=== PATIENT | female | born 1990 | race Caucasian/White ===

== ENCOUNTER 2018-07-11 10:06 | Emergency (ER) | payer OTHER ==
--- NOTE | 2018-07-11 10:27 | ED ---
Female Urogenital HPI - General Chief complaint: Vaginal Bleeding Stated complaint: 6wks preg, bleeding Time Seen by Provider: 07/11/18 10:15 Source: patient, RN notes reviewed, old records reviewed Mode of arrival: ambulatory Limitations: no limitations - History of Present Illness Initial comments: Patient is a 28-year-old female who presents emergency department today with chief complaint of one hour vaginal bleeding. She states that she is 6 weeks . She is a female. She does not have an RETORT OPERATOR at this time. She found out she was last Thursday. Patient states that she's had no significant abdominal pain or cramping. Patient reports that her bleeding has been slightly heavy this past hour. Was not after intercourse. She states that she woke up this morning he noticed the bleeding. Patient has history of PCO S. Denies any fevers or chills denies any urinary symptoms. - Related Data Home Medications Medication Instructions Recorded Confirmed Omeprazole 20 mg PO DAILY 04/02/16 05/05/16 Previous Rx's Medication Instructions Recorded Amoxicillin 500 mg PO TID #21 capsule 07/11/18 Allergies Allergy/AdvReac Type Severity Reaction Status Date / Time No Known Allergies Allergy Verified 07/11/18 10:12 Review of Systems ROS Statement: Those systems with pertinent positive or pertinent negative responses have been documented in the HPI. ROS Other: All systems not noted in ROS Statement are negative. Past Medical History Past Medical History: GERD/Reflux Additional Past Medical History / Comment(s): PCOS History of Any Multi-Drug Resistant Organisms: None Reported Past Surgical History: Breast Surgery Additional Past Surgical History / Comment(s): breast implant Past Anesthesia/Blood Transfusion Reactions: No Reported Reaction Past Psychological History: No Psychological Hx Reported Smoking Status: Current every day smoker - Past Family History Mother Family Medical History: No Reported History General Exam - General Exam Comments Initial Comments: Patient is a 28-year-old female. Alert and oriented 3. Patient appears in no acute distress. Limitations: no limitations General appearance: alert, in no apparent distress Head exam: Present: atraumatic, normocephalic, normal inspection Eye exam: Present: normal appearance, PERRL, EOMI. Absent: scleral icterus, conjunctival injection, periorbital swelling ENT exam: Present: normal exam, mucous membranes moist Neck exam: Present: normal inspection. Absent: tenderness, meningismus, lymphadenopathy Respiratory exam: Present: normal lung sounds bilaterally. Absent: respiratory distress, wheezes, rales, rhonchi, stridor Cardiovascular Exam: Present: regular rate, normal rhythm, normal heart sounds. Absent: systolic murmur, diastolic murmur, rubs, gallop, clicks GI/Abdominal exam: Present: soft, normal bowel sounds. Absent: distended, tenderness, guarding, rebound, rigid External exam: Present: normal external exam Speculum exam: Present: vaginal bleeding. Absent: normal speculum exam By manual exam: Present: normal by manual exam. Absent: cervical motion tenderness, adnexal tenderness Extremities exam: Present: normal inspection, full ROM, normal capillary refill. Absent: tenderness, pedal edema, joint swelling, calf tenderness Back exam: Present: normal inspection Neurological exam: Present: alert, oriented X3, CN II-XII intact Psychiatric exam: Present: normal affect, normal mood Skin exam: Present: warm, dry, intact, normal color Course Vital Signs 07/11/18 10:09 Temperature 98.3 F Pulse Rate 89 Respiratory 18 Rate Blood Pressure 120/86 O2 Sat by Pulse 99 Oximetry Medical Decision Making - Medical Decision Making 28-year-old female presents for his reports of a one-hour vaginal bleeding. female. No RETORT OPERATOR at this time. She found she was recently . This time Patient hCG level 74,000. She is A positive blood type. He does have some bleeding on pelvic exam. Ultrasound does show viable IUP measuring 6 weeks. Heart rate was 113 bpm. Discussed that this I will diagnose her with threatened miscarriage. Her repeat her hCG level and follow-up with RETORT OPERATOR. She also has bacteria in her urine and will treat the Patient for a symptomatically teary. Patient family Patient agree to treatment plan will comply. Return parameters were discussed. - Lab Data Lab Results 07/11/18 07/11/18 07/11/18 Range/Units 10:42 10:42 10:42 HCG, Quant mIU/mL Urine Color Light Yellow Urine Appearance Cloudy H (Clear) Urine pH 6.5 (5.0-8.0) Ur Specific [place] 1.004 (1.001-1.035) Urine Protein Trace H (Negative) Urine Glucose (UA) Negative (Negative) Urine Ketones Negative (Negative) Urine Blood Large H (Negative) Urine Nitrite Negative (Negative) Urine Bilirubin Negative (Negative) Urine Urobilinogen <2.0 (<2.0) mg/dL Ur Leukocyte Esterase Negative (Negative) Urine RBC 4 (0-5) /hpf Urine WBC 4 (0-5) /hpf Ur Squamous Epith Cells 6 H (0-4) /hpf Urine Bacteria Many H (None) /hpf Urine Mucus Rare H (None) /hpf Urine HCG, Qual Detected (Not Detectd) Blood Type A Positive Blood Type Recheck [facility] ONLY 07/11/18 Range/Units 10:42 HCG, Quant 03162.1 mIU/mL Urine Color Urine Appearance (Clear) Urine pH (5.0-8.0) Ur Specific [place] (1.001-1.035) Urine Protein (Negative) Urine Glucose (UA) (Negative) Urine Ketones (Negative) Urine Blood (Negative) Urine Nitrite (Negative) Urine Bilirubin (Negative) Urine Urobilinogen (<2.0) mg/dL Ur Leukocyte Esterase (Negative) Urine RBC (0-5) /hpf Urine WBC (0-5) /hpf Ur Squamous Epith Cells (0-4) /hpf Urine Bacteria (None) /hpf Urine Mucus (None) /hpf Urine HCG, Qual (Not Detectd) Blood Type Blood Type Recheck - Radiology Data Radiology results: report reviewed Viable intrauterine gestation with gestational age of 6 weeks and 3 days plus or -5 days. Estimated date of confinement based on this exam is 03/03/2019. Heart rate of 116 bpm. Disposition Clinical Impression: Threatened miscarriage, Asymptomatic bacteriuria during Disposition: HOME SELF-CARE Condition: Good Instructions: Threatened Miscarriage (ED) Additional Instructions: Patient advised to follow-up with primary care provider. Return to emergency department if any alarming signs occur. Prescriptions: Amoxicillin 500 mg PO TID #21 capsule Is patient prescribed a controlled substance at d/c from ED?: No Referrals: Harleen Hdz DO [Primary Care Provider] - 1-2 days Marcella Ambriz MD [STAFF PHYSICIAN] - 1-2 days Time of Disposition: 12:46
[2018-07-11 11:02] LABS: Appearance,Urine Cloudy (Clear); Bacteria,Urine Many /hpf; Bilirubin,Urine Negative (Negative); Blood,Urine Large (Negative); Color,Urine Light Yellow; Glucose,Urine (UA) Negative (Negative); Ketones,Urine Negative (Negative); Leukocyte Esterase,Urine Negative (Negative); Mucus,Urine Rare /hpf; Nitrite,Urine Negative (Negative); PH, Urine 6.5 (5.0-8.0); Protein,Urine Trace (Negative); RBC,Urine 4 /hpf (0-5); Specific Gravity,Urine 1.004 (1.001-1.035); Squamous Epithelial Cell,Urine 6 /hpf (0-4); Urobilinogen,Urine <2.0 mg/dL (<2.0); WBC,Urine 4 /hpf (0-5)
--- NOTE | 2018-07-11 11:23 | US ---
EXAMINATION TYPE: Transabdominal DATE OF EXAM: 12/08/17 COMPARISON: NONE CLINICAL HISTORY: pain. Bleeding today, no cramping, patient has h/o PCOS EXAM PERFORMED: OBTA EXAM MEASUREMENTS: GESTATIONAL AGE / DATING Physician Established: Not yet established Dates by LMP: (6 weeks/3 days) EDC: 03/03/2019 Dates by First Scan: No previous this is first scan Dates by Current Scan for: (6 weeks/3 days) EDC: 03/03/2019 MATERNAL ANATOMY Uterus: 9.5 x 6.6 x 5.8cm Right Ovary: 4.8 x 3.7 x 3.9cm Left Ovary: 3.0 x 1.9 x 2.2cm Post CDS / Adnexa: wnl Presence of free fluid: no Presence of corpus luteal cyst: 2 cystic areas seen on the right, 2.6cm and 2.8cm Presence of subchorionic bleed: no GESTATION / SURVEY CRL: 0.6 (6 weeks/3 days) MSD: wnl Yolk Sac (normal less than 6mm): 0.3cm Heart Rate: 116 bpm Rhythm: Normal IUP: Viable IUP Date of LMP: 05/27/2018 Beta HcG (if available): pending IMPRESSION: VIABLE INTRAUTERINE GESTATION WITH A GESTATIONAL AGE OF 6 WEEKS 3 DAYS +/- 5 DAYS. ESTIMATED DATE OF CONFINEMENT BASED ON THIS EXAMINATION IS 03/03/2019
[2018-07-11 13:13] VITALS: BP 122/79; PULSE 79; RESP 17; TEMP 97.8
[2018-07-13 13:23] LABS: N. gonorrhoeae,PCR Negative (Neg,Equiv); Neisseria Source Vagina
[2018-07-13 13:31] LABS: C. trachomatis,PCR Negative (Neg,Equiv); Chlamydia trachomatis Source Vagina
== END 2018-07-11 13:13 | disposition home or self-care (01) ==
LOC: EC 10:06
DX: O20.0 Threatened abortion (principal); O23.41 Unspecified infection of urinary tract in pregnancy, first trimester; O99.611 Diseases of the digestive system complicating pregnancy, first trimester; K21.9 Gastro-esophageal reflux disease without esophagitis; O99.331 Smoking (tobacco) complicating pregnancy, first trimester; F17.200 Nicotine dependence, unspecified, uncomplicated; Z3A.01 Less than 8 weeks gestation of pregnancy; Z79.899 Other long term (current) drug therapy
CPT/HCPCS: 36415; 76801; 81001; 81025; 84702; 86900; 86901; 87070; 87205; 87491; 87591; 87808; 99284

== ENCOUNTER → 2018-07-13 | Outpatient (CLI) | payer OTHER | END | disposition home or self-care (01) | LOC: LABWHC1 09:28 | PROVIDERS: ATTEND Physician Assistant Medical | DX: O20.0 Threatened abortion (principal); Z3A.00 Weeks of gestation of pregnancy not specified | CPT/HCPCS: 36415; 84702 ==

== ENCOUNTER 2019-02-24 05:55 | Inpatient (IN) | payer OTHER ==
[2019-02-24] MEDS ORDERED: CARBOPROST TROMETHAMINE 250 MCG/ML 1 ML AMP IM PRN (06:03)
[2019-02-24] MEDS ORDERED: TERBUTALINE 1 MG/ML VIAL SQ PRN (06:03)
[2019-02-24] MEDS ORDERED: LIDOCAINE 0.5% (PF) 5 MG/ML (50 ML SDV) SQ PRN (06:03)
[2019-02-24] MEDS ORDERED: METHYLERGONOVINE 0.2 MG/ML 1 ML AMP IM PRN (06:03)
[2019-02-24] MEDS ORDERED: OXYTOCIN 10 UNIT/ML 1 ML VIAL IM PRN (06:03)
[2019-02-24 06:12] VITALS: BMI 38.4
[2019-02-24] MEDS: LACTATED RINGERS 1,000 ML IV SCH ×4 (06:12→21:33)
[2019-02-24] MEDS: OXYTOCIN 30 UNITS/500 ML NS 30 UNIT in SALINE 1 500ML.BAG IV SCH (06:13)
[2019-02-24 06:22] LABS: Basophils % (A) 0 %; Eosinophils # (A) 0.1 k/uL (0-0.7); Eosinophils % (A) 1 %; HCT 39.1 % (34.0-46.0); HGB 12.5 gm/dL (11.4-16.0); Hypochromasia Slight; Lymphocytes # (A) 1.7 k/uL (1.0-4.8); Lymphocytes % (A) 17 %; MCH 27.1 pg (25.0-35.0); MCHC 31.9 g/dL (31.0-37.0); MCV 84.8 fL (80.0-100.0); Monocytes # (A) 0.4 k/uL (0-1.0); Monocytes % (A) 4 %; Neutrophils # (A) 7.5 k/uL (1.3-7.7); Neutrophils % (A) 75 %; Platelet Count 246 k/uL (150-450); RBC 4.61 m/uL (3.80-5.40); RDW 14.4 % (11.5-15.5); WBC 9.9 k/uL (3.8-10.6)
--- NOTE | 2019-02-24 08:41 | P.HPOB ---
History of Present Illness H&P Date: 02/24/19 Chief Complaint: IUP @ 39 0/7 weeks, LGA This is a 28-year-old [id number] at 39-0/7 weeks that presents for induction of labor secondary to LGA. Patient was measuring 9H greater than the 99th percentile on ultrasound. Patient is noting good movement she notes an occasional contraction, no vaginal bleeding. Patient has been receiving routine care with myself and has been relatively uncomplicated. On bloodwork should a blood type of A+, rubella nonimmune, hepatitis B surface antigen negative, HIV negative, RPR nonreactive, GBS was negative. Review of Systems Constitutional: Denies fatigue, Denies fever Ears, nose, mouth and throat: Denies headache Cardiovascular: Reports leg edema Respiratory: Denies dyspnea Gastrointestinal: Denies nausea, Denies vomiting Genitourinary: Reports Past Medical History Past Medical History: GERD/Reflux Additional Past Medical History / Comment(s): PCOS, "borderline diabetic" History of Any Multi-Drug Resistant Organisms: None Reported Past Surgical History: Breast Surgery Additional Past Surgical History / Comment(s): breast implant Past Anesthesia/Blood Transfusion Reactions: No Reported Reaction Past Psychological History: No Psychological Hx Reported Smoking Status: Former smoker Past Alcohol Use History: Occasional Additional Past Alcohol Use History / Comment(s): quit with Past Drug Use History: None Reported - Past Family History Mother Family Medical History: Hypertension, Thyroid Disorder Father Additional Family Medical History / Comment(s): type 2 diabetes Medications and Allergies Home Medications Medication Instructions Recorded Confirmed Type Ranitidine HCl [Zantac] 150 mg PO BID 02/24/19 02/24/19 History Allergies Allergy/AdvReac Type Severity Reaction Status Date / Time No Known Allergies Allergy Verified 02/24/19 06:03 Exam Osteopathic Statement: *. No significant issues noted on an osteopathic structural exam other than those noted in the History and Physical/Consult. Vital Signs Temp Pulse Resp BP Pulse Ox 02/24/19 06:06 97.3 F L 100 18 138/93 98 Intake and Output 02/23/19 02/24/19 02/24/19 22:59 06:59 14:59 Other: Weight 117.934 kg Targeted physical exam is performed and the state in general this a well- nourished well-developed female in no acute distress, her breathing is noted to be nonlabored, her heart is noted to have a regular rate and rhythm her abdomen is gravid and large for gestational age, heart tones are noted to be category 1 she is skip irregularly at this time. On cervical exam she is a tight 2/80/-2 amniotomy is performed and clear fluid was obtained. Results Result Diagrams: 02/24/19 06:07 Assessment and Plan (1) Term Current Visit: Yes Status: Acute Code(s): Z34.90 - ENCNTR FOR SUPRVSN OF NORMAL , UNSP, UNSP TRIMESTER SNOMED Code(s): 09632181 (2) Large for gestational age fetus Current Visit: Yes Status: Acute Code(s): UAQ6433 - SNOMED Code(s): 665359512 Plan: Patient is admitted to labor and delivery for induction of labor secondary to suspected large for gestational age with ultrasound revealing 9-8. Patient does desire epidural for pain management and we discussed once she is making cervical change we will contact anesthesia for placement.
[2019-02-24] MEDS ORDERED: fentaNYL (PF) 50 MCG/ML 5 ML AMP ONE (12:33)
[2019-02-24] MEDS ORDERED: SODIUM CHLORIDE 0.9% 100 ML BAG ONE (12:33)
[2019-02-24] MEDS ORDERED: ROPIVACAINE 5MG/ML 20ML VIAL ONE (12:33)
[2019-02-24] MEDS ORDERED: ceFAZolin IN SWFI 2 GM/20 ML SYRINGE IVP ONE (16:37)
[2019-02-24] MEDS ORDERED: CITRIC ACID-SODIUM CITRATE 15 ML CUP PO ONE (16:37)
[2019-02-24] MEDS ORDERED: HYDROmorphone (PF) 1 MG/ML ONE (16:54)
[2019-02-24] MEDS ORDERED: METHYLERGONOVINE 0.2 MG/ML 1 ML AMP ONE (16:54)
[2019-02-24] MEDS ORDERED: NALBUPHINE 10 MG/ML (1 ML AMP) ONE (16:54)
[2019-02-24] MEDS ORDERED: ONDANSETRON 4 MG/2 ML VIAL ONE (16:54)
[2019-02-24] MEDS ORDERED: SUCCINYLCHOLINE CHLORIDE 100 MG/5 ML SYR IV ONE (16:54)
[2019-02-24] MEDS ORDERED: PROPOFOL 10 MG/ML 20 ML VIAL IV ONE (16:54)
[2019-02-24] MEDS ORDERED: DEXAMETHASONE SOD PHOS (MDV) 100 MG/10 ML VIAL ONE (16:54)
[2019-02-24] MEDS ORDERED: OXYTOCIN 10 UNIT/ML 1 ML VIAL ONE (16:54)
[2019-02-24] MEDS ORDERED: ONDANSETRON 4 MG/2 ML VIAL IVP PRN (17:39)
[2019-02-24] MEDS ORDERED: diphenhydrAMINE 50 MG CAP PO PRN ×2 (17:39→17:56)
[2019-02-24] MEDS ORDERED: METOCLOPRAMIDE 5 MG/ML 2 ML VIAL IVP PRN ×2 (17:39→17:56)
[2019-02-24] MEDS ORDERED: NALOXONE 0.4 MG/ML 1 ML VIAL IV PRN (17:39)
[2019-02-24] MEDS ORDERED: ACETAMINOPHEN IV (For NPO) 1,000 MG in EMPTY BAG 1 BAG IVPB ONE (17:39)
[2019-02-24] MEDS ORDERED: MEASLES-MUMPS-RUBELLA VACC/PF 12,500 UNIT/0.5 ML VIAL SQ ONE (17:39)
[2019-02-24] MEDS ORDERED: ACETAMINOPHEN TAB 325 MG TAB PO PRN (17:39)
[2019-02-24] MEDS ORDERED: diphenhydrAMINE 50 MG/ML 1 ML VIAL IVP PRN ×4 (17:39→17:56)
[2019-02-24] MEDS ORDERED: diphenhydrAMINE 25 MG CAP PO PRN ×2 (17:39→17:56)
[2019-02-24] MEDS ORDERED: ZOLPIDEM 5 MG TAB PO PRN (17:39)
[2019-02-24] MEDS ORDERED: OXYTOCIN 20 UNITS/1000 ML NS 1,000 ML IV SCH (17:45)
--- NOTE | 2019-02-24 17:45 | P.OP ---
Date of Procedure: 02/24/19 Preoperative Diagnosis: IUP at 39 and 1/sevenths weeks, suspected LGA Postoperative Diagnosis: Same plus LGA, occiput transverse presentation Procedure(s) Performed: Primary low transverse section Anesthesia: FATOUA Surgeon: Karrie Suggs Boring Machine Operator Helper #1: Luis Manuel Sebastian Estimated Blood Loss (ml): 600 IV fluids (ml): 1,000 Urine output (ml): 100 Pathology: none sent Condition: stable Disposition: PACU Indications for Procedure: Arrest of dilation, with known suspected LGA Operative Findings: Arcuate uterus, normal tubes and ovaries were appreciated, male delivered at 1710, weight 10-7 Description of Procedure: The patient was prepped and draped in the usual fashion after general anesthesia was obtained, she was unable to be comfortable with 3 dosing her epidural. This epidural had been replaced previously in addition.. A Pfannenstiel incision was made and extended of the abdominal cavity without difficulty. The bladder peritoneum was elevated and incised and reflected distally. A 2 cm incision was made in the transverse plane of the lower uterine segment to enter the uterus at which time clear fluid was noted. The incision was extended in both directions using the bandage scissors. The head was encountered within the field and delivered up and through the incision where the nose and mouth were thoroughly suctioned. Remainder of the was delivered onto the surgical field where the cord was doubly clamped, cut, and the infant was passed for resuscitative measures with weight and Apgars as noted above. A segment of cord was then doubly clamped, cut, and set aside should cord gases become necessary. The placenta was delivered manually, intact, and was grossly normal with a grossly normal three-vessel cord. The uterus was exteriorized and the interior cavity of the uterus swept of any remaining placental and membranous fragments with a laparotomy sponge. The margins of the incision were grasped with Allis clamps and the incision closed in 2 layers. First layer was a running locking layer of 0 Vicryl from margin to margin followed by a second layer of imbricating 0 Vicryl from margin to margin. Any small points of bleeding were then made hemostatic with the Bovie. Once hemostasis was achieved, the posterior cul-de-sac was suctioned with a guard and the uterine and ovarian findings are as noted above. The uterus was replaced within the abdominal cavity and the gutters swept of any remaining blood fluid or clot. The incision was again reexamined and hemostasis was noted to be excellent. Any small point of bleeding were made hemostatic with the Bovie. Once hemostasis was achieved the parietal peritoneum was loosely reapproximated. The layer of muscles were examined and made hemostatic with the Bovie. Attention was then turned to the fascia which was closed with 2 running stitches of 0 Vicryl proceeding from the lateral margins to the midpoint. The subcutaneous tissues were irrigated, made hemostatic with the Bovie, and reapproximated with a running stitch of 30 plain Vicryl. The skin was reapproximated with 4-0 Vicryl. Estimated blood loss for the case was approximately 600 mL. All sponge instrument and needle counts are correct. There were no complications. The patient tolerated the procedure well and proceeded to the recovery room in stable condition. Both mother and infant are resting comfortably in recovery.
[2019-02-24] MEDS: SENNOSIDES-DOCUSATE SODIUM 1 EACH TAB PO SCH (21:31)
[2019-02-25] MEDS: FAMOTIDINE 20 MG TAB PO SCH ×2 (02:32→23:03)
[2019-02-25] MEDS: LACTATED RINGERS 1,000 ML IV SCH ×5 (02:33→23:04)
[2019-02-25 07:18] LABS: Basophils % (A) 0 %; Eosinophils % (A) 0 %; HCT 29.3 % (34.0-46.0); Hypochromasia Slight; Lymphocytes % (A) 7 %; MCV 84.8 fL (80.0-100.0); Monocytes # (A) 0.6 k/uL (0-1.0); Monocytes % (A) 4 %; Neutrophils # (A) 11.9 k/uL (1.3-7.7); Neutrophils % (A) 88 %; Platelet Count 225 k/uL (150-450); RBC 3.46 m/uL (3.80-5.40); RDW 14.5 % (11.5-15.5); WBC 13.5 k/uL (3.8-10.6)
[2019-02-25 07:48] LABS: HGB 9.7 gm/dL (11.4-16.0)
[2019-02-25] MEDS ORDERED: IBUPROFEN IV 800 MG in SODIUM CHLORIDE 0.9% 250 ML IV ONE (09:00)
[2019-02-25] MEDS: SENNOSIDES-DOCUSATE SODIUM 1 EACH TAB PO SCH ×2 (09:51→22:45)
--- NOTE | 2019-02-25 10:31 | P.PNOBGPC ---
Subjective - Subjective Principal diagnosis: POD 1 LTCS Interval history: Patient is struggling with pain control sense this morning. PROGRAM DEVELOPER was discontinued and she is now on oral [place]. She states her pain is okay this morning. We are awaiting a spontaneous void. [facility] She is tolerating crackers and clear liquids without nausea or vomiting. Her lochia is noted to be moderate. Patient reports: Reports appetite normal, Reports pain poorly controlled, Reports ambulating normally [place]: doing well Objective - Vital Signs Latest vital signs: Vital Signs Temp Pulse Resp BP Pulse Ox 02/25/19 07:37 99.8 F H 102 H 16 131/78 98 02/25/19 04:00 98.1 F 108 H 16 140/93 02/24/19 23:27 98 F 90 18 154/80 98 02/24/19 19:48 98.4 F 87 18 147/80 95 02/24/19 19:18 98.7 F 94 18 147/79 96 02/24/19 18:48 98.1 F 90 18 143/92 95 02/24/19 18:33 87 18 154/82 96 02/24/19 18:18 98.7 F 90 20 153/82 95 02/24/19 18:03 99 18 142/86 95 02/24/19 17:48 99.4 F 102 H 18 149/83 90 L Intake and Output 02/24/19 02/25/19 02/25/19 22:59 06:59 14:59 Output Total 1000 800 400 Balance -1000 -800 -400 Output: Urine 400 800 400 Uretheral (Orr) 400 Estimated Blood Loss 600 Other: Voiding Method Indwelling Catheter - Exam Extremities: Present: normal, edema Abdomen: Present: normal appearance, soft Incision: Present: normal, dry, intact Uterus: Present: normal, firm - Labs Labs: Abnormal Lab Results - Last 24 Hours (Table) 02/25/19 Range/Units 06:48 WBC 13.5 H (3.8-10.6) k/uL RBC 3.46 L (3.80-5.40) m/uL Hgb 9.7 L D (11.4-16.0) gm/dL Hct 29.3 L (34.0-46.0) % Neutrophils # 11.9 H (1.3-7.7) k/uL Assessment and Plan (1) Term Current Visit: Yes Status: Acute Code(s): Z34.90 - ENCNTR FOR SUPRVSN OF NORMAL , UNSP, UNSP TRIMESTER SNOMED Code(s): 48805471 (2) Large for gestational age fetus Current Visit: Yes Status: Acute Code(s): GWC4892 - SNOMED Code(s): 145948611 (3) S/P section Current Visit: Yes Status: Acute Code(s): Z98.891 - HISTORY OF UTERINE SCAR FROM PREVIOUS SURGERY SNOMED Code(s): 491548680 Plan: We will monitor patient's pain as we continue with care. The oral [place] seem to be working better than the PROGRAM DEVELOPER at this time. Encouraged ambulation. We will advance diet as tolerated.
[2019-02-25] MEDS: HYDROcodone/APAP 5-325MG 1 EACH TAB PO PRN ×2 (13:12→22:44)
[2019-02-25] MEDS: IBUPROFEN 600 MG TAB PO PRN (17:58)
[2019-02-25] MEDS: OXYTOCIN 30 UNITS/500 ML NS 30 UNIT in SALINE 1 500ML.BAG IV SCH (23:03)
[2019-02-26] MEDS: HYDROcodone/APAP 5-325MG 1 EACH TAB PO PRN ×4 (05:31→22:38)
[2019-02-26] MEDS: IBUPROFEN 600 MG TAB PO PRN ×3 (07:59→21:04)
[2019-02-26] MEDS: SENNOSIDES-DOCUSATE SODIUM 1 EACH TAB PO SCH ×2 (08:00→18:55)
--- NOTE | 2019-02-26 11:13 | P.PNOBGPC ---
Subjective - Subjective Patient reports: Reports appetite normal, Reports voiding normally, Reports pain well controlled, Reports ambulating normally : doing well, in NICU (For blood sugar control and elevated bilirubin under the BiliBlanket.) Objective - Vital Signs Latest vital signs: Vital Signs Temp Pulse Resp BP Pulse Ox 02/26/19 08:00 98 F 90 16 121/73 100 02/26/19 00:00 98.5 F 92 16 129/71 98 02/25/19 16:00 98.2 F 93 16 129/75 97 02/25/19 12:00 98.9 F 103 H 16 125/77 97 Intake and Output 02/25/19 02/26/19 02/26/19 22:59 06:59 14:59 Output Total 500 Balance -500 Output: Urine 500 - Exam Extremities: Present: normal Abdomen: Present: normal appearance, soft. Absent: distention, tenderness Incision: Present: normal, dry, intact Uterus: Present: normal, firm (The uterine fundus is tonic and nontender at or just below the umbilicus.) Assessment and Plan (1) S/P section Current Visit: Yes Status: Acute Code(s): Z98.891 - HISTORY OF UTERINE SCAR FROM PREVIOUS SURGERY SNOMED Code(s): 729699803 Plan: Continue routine postoperative care. The patient will likely remain in the hospital as long as insurance will allow pending discharge timing of the . I have encouraged her to ambulate in the halls routinely.
[2019-02-26] MEDS: FAMOTIDINE 20 MG TAB PO SCH ×2 (11:38→19:40)
[2019-02-27] MEDS: HYDROcodone/APAP 5-325MG 1 EACH TAB PO PRN ×3 (04:51→19:44)
[2019-02-27] MEDS: IBUPROFEN 600 MG TAB PO PRN ×3 (07:49→22:44)
--- NOTE | 2019-02-27 09:43 | P.PNOBGPC ---
Subjective - Subjective Patient reports: Reports appetite normal, Reports voiding normally, Reports pain well controlled, Reports ambulating normally : doing well, in NICU (The infant remains and special care nursery for ongoing treatment of low blood sugar as well as bilirubin concerns.) Objective - Vital Signs Latest vital signs: Vital Signs Temp Pulse Resp BP Pulse Ox 02/27/19 08:00 93 16 134/75 02/26/19 23:37 98.4 F 88 16 130/71 98 02/26/19 15:54 97.6 F 84 18 115/67 97 - Exam Extremities: Present: normal Abdomen: Present: normal appearance, soft. Absent: distention, tenderness Incision: Present: normal, dry, intact Uterus: Present: normal, firm (The uterine fundus is tonic and nontender just below the umbilicus.) Assessment and Plan (1) S/P section Current Visit: Yes Status: Acute Code(s): Z98.891 - HISTORY OF UTERINE SCAR FROM PREVIOUS SURGERY SNOMED Code(s): 477911024 Plan: Continue routine postoperative care. Discharge home is planned for tomorrow pending no medical complications. I have continued to encourage her to ambulate in the halls routinely.
[2019-02-27] MEDS: SENNOSIDES-DOCUSATE SODIUM 1 EACH TAB PO SCH ×2 (12:24→12:39)
[2019-02-27] MEDS: FAMOTIDINE 20 MG TAB PO SCH ×2 (17:56→20:14)
[2019-02-27] MEDS: SIMETHICONE 80 MG CHEWABLE PO PRN (20:05)
[2019-02-28] MEDS: HYDROcodone/APAP 5-325MG 1 EACH TAB PO PRN ×2 (03:44→12:13)
[2019-02-28] MEDS: IBUPROFEN 600 MG TAB PO PRN ×2 (07:52→16:27)
[2019-02-28] MEDS: SIMETHICONE 80 MG CHEWABLE PO PRN ×2 (07:52→16:29)
[2019-02-28] MEDS: SENNOSIDES-DOCUSATE SODIUM 1 EACH TAB PO SCH (08:04)
[2019-02-28 08:07] VITALS: PULSE 84; RESP 16
--- NOTE | 2019-02-28 08:32 | P.DS ---
Providers Date of admission: 02/24/19 05:55 Expected date of discharge: 02/28/19 Attending physician: Karrie Suggs Primary care physician: Harleen Hdz - Discharge Diagnosis(es) (1) Term Current Visit: Yes Status: Acute (2) Large for gestational age fetus Current Visit: Yes Status: Acute (3) S/P section Current Visit: Yes Status: Acute Hospital Course: This is a pleasant 28-year-old 1 para 0 at 39 0/7 weeks that presented to labor and delivery for induction of labor secondary to suspected LGA. Patient was admitted Pitocin augmentation of labor was begun. Patient underwent amniotomy once regular painful contractions were noted. Clear fluid was obtained at that time. Patient made minimal progress through labor eventually being stuck at 4 cm for multiple hours. Patient was counseled on the need for primary low transverse section secondary to arrest of first stage of labor with suspected LGA. Patient consented and wished to proceed with plan. Patient was taken back for a which was performed without difficulty. For further details on the please see the operative report. Patient's postoperative course has been essentially uneventful. On this postop day #4 she is ambulating and voiding without difficulty. She is tolerating a regular diet without nausea or vomiting. She denies concerns today and is ready for discharge. Her infant has been struggling with low blood sugars and will remain admitted for a additional few days. Patient Condition at Discharge: Good Plan - Discharge Summary New Discharge Prescriptions: No Action Ranitidine HCl [Zantac] 150 mg PO BID Discharge Medication List Ranitidine HCl [Zantac] 150 mg PO BID 02/24/19 [History] Follow up Appointment(s)/Referral(s): Karrie Suggs DO [Doctor of Osteopathic Medicine] - 2 Weeks Patient Instructions/Handouts: (DC), (GEN) Discharge Disposition: HOME SELF-CARE
[2019-02-28] MEDS: FAMOTIDINE 20 MG TAB PO SCH (10:13)
[2019-02-28 18:14] VITALS: BP 133/78; TEMP 98.3
== END 2019-02-28 18:55 | disposition home or self-care (01) | DRG 788 ==
LOC: 4FBP 05:55
PROVIDERS: ADMIT Obstetrics & Gynecology Obstetrics; ATTEND Obstetrics & Gynecology Obstetrics
PROC: 10D00Z1 Extraction of Products of Conception, Low, Open Approach (ICD-10-PCS; principal; 2019-02-24 06:15)
DX: O36.63X0 Maternal care for excessive fetal growth, third trimester, not applicable or unspecified (principal); O99.62 Diseases of the digestive system complicating childbirth; K21.9 Gastro-esophageal reflux disease without esophagitis; O62.0 Primary inadequate contractions; Q51.810 Arcuate uterus; O99.89 Other specified diseases and conditions complicating pregnancy, childbirth and the puerperium; E28.2 Polycystic ovarian syndrome; R73.03 Prediabetes; Z37.0 Single live birth; Z3A.39 39 weeks gestation of pregnancy; Z87.891 Personal history of nicotine dependence; Z98.82 Breast implant status; Z82.49 Family history of ischemic heart disease and other diseases of the circulatory system; Z83.3 Family history of diabetes mellitus; Z83.49 Family history of other endocrine, nutritional and metabolic diseases
CPT/HCPCS: 85025; 86850; 86900; 86901; 90707

== ENCOUNTER 2020-12-01 18:00 | Emergency (ER) | payer OTHER ==
[2020-12-01] MEDS ORDERED: SODIUM CHLORIDE 0.9% 1,000 ML IV STA (18:33)
[2020-12-01] MEDS ORDERED: KETOROLAC 15 MG/ML 1 ML VIAL IVP STA (18:33)
[2020-12-01] MEDS ORDERED: ACETAMINOPHEN TAB 500 MG TAB PO STA (18:33)
[2020-12-01] MEDS ORDERED: ONDANSETRON 4 MG/2 ML VIAL IVP STA (18:33)
[2020-12-01] MEDS ORDERED: diphenhydrAMINE 50 MG/ML 1 ML VIAL IVP STA (18:33)
--- NOTE | 2020-12-01 19:20 | ED ---
Headache HPI - General Chief Complaint: Headache Stated Complaint: Covid exposure, headache Time Seen by Provider: 12/01/20 18:23 Mode of arrival: ambulatory Limitations: no limitations - History of Present Illness Initial Comments: Patient is a 30-year-old female presenting to the emergency Department with complaints of a headache and fevers started approximately 2 AM this morning. She denies any nausea or vomiting, no cough or shortness of breath. She states she did take Tylenol and Motrin last around 2 PM this afternoon. She did get a Covid swab at [facility] today however it will not be back for 2 days. She states she does have a history of hypertension but it's usually related to doctor's offices. She is not on any medication. She does admit to control, denies . She denies any chest pain or short of breath. She has no further complaints at this time. Upon arrival to the ER, she is febrile to 101.3, tachycardia at 110, blood pressure is 205/140, 100% on room air. - Related Data Home Medications Medication Instructions Recorded Confirmed Ranitidine HCl [Zantac] 150 mg PO BID 02/24/19 02/24/19 Allergies Allergy/AdvReac Type Severity Reaction Status Date / Time No Known Allergies Allergy Verified 12/01/20 18:07 Review of Systems ROS Statement: Those systems with pertinent positive or pertinent negative responses have been documented in the HPI. ROS Other: All systems not noted in ROS Statement are negative. Past Medical History Past Medical History: GERD/Reflux Additional Past Medical History / Comment(s): PCOS, "borderline diabetic" History of Any Multi-Drug Resistant Organisms: None Reported Past Surgical History: Breast Surgery Additional Past Surgical History / Comment(s): breast implant Past Anesthesia/Blood Transfusion Reactions: No Reported Reaction Past Psychological History: No Psychological Hx Reported Smoking Status: Former smoker Past Alcohol Use History: Rare Past Drug Use History: None Reported - Past Family History Mother Family Medical History: Hypertension, Thyroid Disorder Father Additional Family Medical History / Comment(s): type 2 diabetes General Exam - General Exam Comments Initial Comments: GENERAL: Patient is well-developed and well-nourished. Patient is nontoxic and in no acute distress. HEAD: Atraumatic, normocephalic. EYES: Pupils equal round and reactive to light, extraocular movements intact, sclera anicteric, conjunctiva are normal. Eyelids were unremarkable. ENT: TMs normal, nares patent, oropharynx clear without exudates. Moist mucous membranes. NECK: Normal range of motion, supple without lymphadenopathy or JVD. LUNGS: Unlabored respirations. Breath sounds clear to auscultation bilaterally and equal. No wheezes rales or rhonchi. HEART: Tachycardia rate and rhythm without murmurs, rubs or gallops. ABDOMEN: Soft, nontender, normoactive bowel sounds. No guarding, no rebound. No masses appreciated. : Deferred MUSCULOSKELETAL: Normal extremities with adequate strength and normal range of motion, no pitting or edema. No clubbing or cyanosis. NEUROLOGICAL: Patient is alert and oriented x 3. Motor and sensory are also intact. Cranial nerves II through XII grossly intact. Symmetrical smile. Normal speech, normal gait. PSYCH: Normal mood, normal affect. SKIN: Warm, Dry, normal turgor, no rashes or lesions noted. Limitations: no limitations Course Vital Signs 12/01/20 18:02 Temperature 101.3 F H Pulse Rate 110 H Respiratory 18 Rate Blood Pressure 205/140 O2 Sat by Pulse 100 Oximetry Medical Decision Making - Medical Decision Making Patient is a 30-year-old female here with a headache and fever that started suddenly at 2 AM this morning. She did arrive febrile, slightly tachycardia. She denies any upper respiratory symptoms, no nausea or vomiting. Her exam is unremarkable except for some mild tachycardia, no acute neuro deficits. Rapid Covid test is positive today. Patient's labs are stable except for some slightly elevation in her liver enzymes, AST is 197, ALT is 183. She received fluids, headache medication as well as Tylenol for fever. She does report improvement and is ready to go home. I did discuss with her and option of receiving antibiotic treatment, as she does meet criteria, however patient declined. will follow up with her doctor regarding elevated liver enzymes for repeat labs. Patient is stable for discharge. Patient is in agreement with this plan of care. Return parameters were discussed with the patient and they verbalized understanding. Case discussed with Dr. Laguerre. - Lab Data Result diagrams: 12/01/20 18:53 12/01/20 18:53 Lab Results 12/01/20 12/01/20 12/01/20 Range/Units 18:20 18:53 18:53 WBC 3.5 L (3.8-10.6) k/uL RBC 4.73 (3.80-5.40) m/uL Hgb 14.3 (11.4-16.0) gm/dL Hct 41.2 (34.0-46.0) % MCV 87.1 (80.0-100.0) fL MCH 30.2 (25.0-35.0) pg MCHC 34.7 (31.0-37.0) g/dL RDW 12.5 (11.5-15.5) % Plt Count 235 (150-450) k/uL MPV 6.9 Neutrophils % 76 % Lymphocytes % 9 % Monocytes % 12 % Eosinophils % 1 % Basophils % 0 % Neutrophils # 2.7 (1.3-7.7) k/uL Lymphocytes # 0.3 L (1.0-4.8) k/uL Monocytes # 0.4 (0-1.0) k/uL Eosinophils # 0.0 (0-0.7) k/uL Basophils # 0.0 (0-0.2) k/uL Sodium 140 (137-145) mmol/L Potassium 4.2 (3.5-5.1) mmol/L Chloride 102 (98-107) mmol/L Carbon Dioxide 25 (22-30) mmol/L Anion Gap 13 mmol/L BUN 7 (7-17) mg/dL Creatinine 0.86 (0.52-1.04) mg/dL Est GFR (CKD-EPI)AfAm >90 (>60 ml/min/1.73 sqM) Est GFR (CKD-EPI)NonAf >90 (>60 ml/min/1.73 sqM) Glucose 97 (74-99) mg/dL Calcium 10.1 (8.4-10.2) mg/dL Total Bilirubin 0.6 (0.2-1.3) mg/dL AST 197 H (14-36) U/L ALT 183 H (4-34) U/L Alkaline Phosphatase 78 (38-126) U/L Total Protein 8.0 (6.3-8.2) g/dL Albumin 4.8 (3.5-5.0) g/dL Coronavirus (PCR) Detected A (Not Detectd) Disposition Clinical Impression: Headache, COVID-19 Disposition: HOME SELF-CARE Condition: Stable Instructions (If sedation given, give patient instructions): Coronavirus Disease 2019 (COVID-19) Additional Instructions: Please return to the Emergency Department if symptoms worsen or any other concerns. Rapid covid is positive. Recommend quarantine for 10 days. Recommend alternating between Tylenol and Motrin for fever control. Increase water intake. Follow-up with your regular family doctor. Is patient prescribed a controlled substance at d/c from ED?: No Referrals: Harleen Hdz DO [Primary Care Provider] - 1-2 days Time of Disposition: 20:37
[2020-12-01 19:37] LABS: Basophils % (A) 0 %; Eosinophils % (A) 1 %; HCT 41.2 % (34.0-46.0); HGB 14.3 gm/dL (11.4-16.0); Lymphocytes # (A) 0.3 k/uL (1.0-4.8); Lymphocytes % (A) 9 %; MCH 30.2 pg (25.0-35.0); MCHC 34.7 g/dL (31.0-37.0); MCV 87.1 fL (80.0-100.0); Mean Platelet Volume 6.9; Monocytes # (A) 0.4 k/uL (0-1.0); Monocytes % (A) 12 %; Neutrophils # (A) 2.7 k/uL (1.3-7.7); Neutrophils % (A) 76 %; Platelet Count 235 k/uL (150-450); RBC 4.73 m/uL (3.80-5.40); RDW 12.5 % (11.5-15.5); WBC 3.5 k/uL (3.8-10.6)
[2020-12-01 19:50] LABS: ALT 183 U/L (4-34); AST 197 U/L (14-36); African American GFR (CKD) >90 (>60 ml/min/1.73 sqM); Albumin 4.8 g/dL (3.5-5.0); Alkaline Phosphatase 78 U/L (38-126); Anion Gap 13 mmol/L; Blood Urea Nitrogen 7 mg/dL (7-17); Calcium 10.1 mg/dL (8.4-10.2); Carbon Dioxide 25 mmol/L (22-30); Chloride 102 mmol/L (98-107); Glucose 97 mg/dL (74-99); Non-African American GFR(CKD) >90 (>60 ml/min/1.73 sqM); Potassium 4.2 mmol/L (3.5-5.1); Sodium 140 mmol/L (137-145); Total Bilirubin 0.6 mg/dL (0.2-1.3)
[2020-12-01] MEDS ORDERED: MORPHINE SULFATE 4 MG/ML SYRINGE IVP STA (19:57)
[2020-12-01 21:10] VITALS: BP 139/90; PULSE 91; RESP 20; TEMP 100.3
== END 2020-12-01 21:00 | disposition home or self-care (01) ==
LOC: EC 18:00
DX: U07.1 COVID-19 (principal); I10 Essential (primary) hypertension; E11.9 Type 2 diabetes mellitus without complications; K21.9 Gastro-esophageal reflux disease without esophagitis; Z87.891 Personal history of nicotine dependence
CPT/HCPCS: 36415; 80053; 85025; 87635; 99284; 96374; 96375 ×3; 96361; J2270; J1200; J2405; J1885

== ENCOUNTER 2022-04-09 12:05 | Outpatient (CLI) | payer OTHER ==
[2022-04-09] MEDS ORDERED: LABETALOL 5 MG/ML VIAL MDV IVP STA (12:43)
[2022-04-09] MEDS ORDERED: hydrALAZINE HCL 20 MG/ML 1 ML VIAL IVP PRN (12:53)
[2022-04-09] MEDS ORDERED: LABETALOL 5 MG/ML VIAL MDV IVP PRN ×3 (12:53)
[2022-04-09 12:59] LABS: Creatinine,Urine Random 88.9 mg/dL; Protein/Creatinine Ratio,Urine 0.439
[2022-04-09] MEDS ORDERED: CALCIUM GLUCONATE 1 GM/10 ML VIAL IV PRN (13:09)
[2022-04-09 13:10] LABS: Appearance,Urine Clear (Clear); Bacteria,Urine Rare /hpf; Bilirubin,Urine Negative (Negative); Blood,Urine Small (Negative); Color,Urine Yellow; Glucose,Urine (UA) Negative (Negative); Ketones,Urine Negative (Negative); Leukocyte Esterase,Urine Negative (Negative); Mucus,Urine Rare /hpf; Nitrite,Urine Negative (Negative); PH, Urine 5.5 (5.0-8.0); Protein,Urine 1+ (Negative); RBC,Urine 3 /hpf (0-5); Specific Gravity,Urine 1.014 (1.001-1.035); Squamous Epithelial Cell,Urine 3 /hpf (0-4); Urobilinogen,Urine <2.0 mg/dL (<2.0); WBC,Urine 1 /hpf (0-5)
[2022-04-09] MEDS ORDERED: BETAMET ACET-BETAMETH SOD PHOS 6 MG/ML MDV IM SCH (13:15)
[2022-04-09 13:18] LABS: Basophils # (A) 0.1 k/uL (0-0.2); Basophils % (A) 0 %; Eosinophils # (A) 0.1 k/uL (0-0.7); Eosinophils % (A) 1 %; HCT 42.9 % (34.0-46.0); Lymphocytes # (A) 2.4 k/uL (1.0-4.8); Lymphocytes % (A) 18 %; MCH 29.4 pg (25.0-35.0); MCHC 32.6 g/dL (31.0-37.0); Mean Platelet Volume 8.3; Monocytes # (A) 0.7 k/uL (0-1.0); Monocytes % (A) 5 %; Neutrophils # (A) 9.5 k/uL (1.3-7.7); Neutrophils % (A) 74 %; Platelet Count 298 k/uL (150-450); RBC 4.76 m/uL (3.80-5.40); RDW 13.4 % (11.5-15.5); WBC 12.9 k/uL (3.8-10.6)
[2022-04-09] MEDS ORDERED: MAGNESIUM SULFATE-WATER PMX 20 GM in WATER FOR INJECTION 1 500ML.BAG IV SCH (13:30)
[2022-04-09] MEDS ORDERED: MAGNESIUM SULFATE-WATER PMX 4 GM in WATER FOR INJECTION 1 100ML.BAG IVPB ONE (13:30)
[2022-04-09 13:32] LABS: Uric Acid 4.4 mg/dL (3.7-7.4)
[2022-04-09 13:42] VITALS: PULSE 94; RESP 17
--- NOTE | 2022-04-09 13:51 | P.HPOB ---
History of Present Illness H&P Date: 04/09/22 Chief Complaint: IUP at 28 3/7 weeks, preeclampsia with severe features This is a 32-year-old 011 at 20 3/7 weeks with an estimated due date of 06/29 based on 8 week ultrasound. Patient presented for routine visit this morning her blood pressures noted to be elevated at 150/98, she denied any signs or symptoms of preeclampsia. She denies headache, or signs or symptoms of preeclampsia. she notes good movement she denies vaginal bleeding or loss of fluid. Patient has a diagnosis of gestational diabetes with her early 1 hour screen, her blood sugars have been moderately well controlled with diet. Patient has been noncompliant with diet as she continues to eat sugary foods. Patient has no history of elevated blood pressures, gestational hypertension or preeclampsia with her last . Patient was sent to labor and delivery for serial blood pressures and preeclampsia workup. Blood pressures remained elevated 194/98. On bloodwork this patient of blood type of A+, rubella status immune, RPR is nonreactive, hep Nuha surface antigen is negative, HIV is negative. Patient did fail her early 1 hour gestational diabetes screen with a level of 154. Patient in addition failed a 3 hour therefore diabetes education was initi ated and she has been watching her diet and checking her blood sugars 4 times a day. Review of Systems Constitutional: Denies chills, Denies fatigue, Denies fever Ears, nose, mouth and throat: Denies headache Cardiovascular: Reports leg edema Gastrointestinal: Denies constipation, Denies diarrhea, Denies nausea, Denies vomiting Genitourinary: Reports Past Medical History Past Medical History: GERD/Reflux Additional Past Medical History / Comment(s): PCOS, "borderline diabetic" History of Any Multi-Drug Resistant Organisms: None Reported Past Surgical History: Breast Surgery Additional Past Surgical History / Comment(s): breast implant Past Anesthesia/Blood Transfusion Reactions: No Reported Reaction Smoking Status: Former smoker - Past Family History Mother Family Medical History: Hypertension, Thyroid Disorder Father Additional Family Medical History / Comment(s): type 2 diabetes Medications and Allergies Home Medications Medication Instructions Recorded Confirmed Type No Known Home Medications 04/09/22 04/09/22 History Allergies Allergy/AdvReac Type Severity Reaction Status Date / Time No Known Allergies Allergy Verified 04/09/22 12:12 Exam Osteopathic Statement: *. No significant issues noted on an osteopathic structural exam other than those noted in the History and Physical/Consult. Intake and Output 04/08/22 04/09/22 04/09/22 22:59 06:59 14:59 Other: Weight 112.763 kg Targeted physical exam is performed and mission assessment specialist a well-nourished well- developed female in no acute distress, breathing is nonlabored, heart has a regular rhythm, abdomen is gravid and appropriate for gestational age, trace lower extremity edema is appreciated. heart tones are noted to be appropriate for gestational age and she is not skip Results Result Diagrams: 04/09/22 12:35 Assessment and Plan (1) 28 weeks gestation of Current Visit: Yes Status: Acute Code(s): Z3A.28 - 28 WEEKS GESTATION OF SNOMED Code(s): 56364006 (2) Preeclampsia Current Visit: Yes Status: Acute Code(s): O14.90 - UNSPECIFIED PRE- ECLAMPSIA, UNSPECIFIED TRIMESTER SNOMED Code(s): 446170544 Plan: 32-year-old 011 at 28 3/7 weeks that presents from the office with elevated blood pressures. Blood pressures are noted to be significantly e levated therefore IV labetalol per protocol was given, magnesium gtt was initiated with a 4 gm bolus, beta methasone was given as well. Transfer to [facility] is intiated, and accepted. Dr. Van Luu
[2022-04-09 14:24] LABS: Glucose,Whole Blood 97 mg/dL (70-110)
[2022-04-09 15:20] VITALS: BP 226/142
== END 2022-04-09 14:55 ==
LOC: FBPOP 12:05
PROVIDERS: ATTEND Obstetrics & Gynecology Obstetrics
DX: O14.93 Unspecified pre-eclampsia, third trimester (principal); Z3A.28 28 weeks gestation of pregnancy
CPT/HCPCS: 59025; 96361; 96365; 96372; 96375; 82570; 84156; 83615; 84450; 84460; 84550; 85025; 81001; J3475 ×2; J0702

== ENCOUNTER 2023-07-16 09:35 | Emergency (ER) | payer BC, OTHER ==
[2023-07-16 09:46] VITALS: RESP 18; TEMP 98.1
--- NOTE | 2023-07-16 11:08 | XR ---
EXAMINATION TYPE: XR chest 2V DATE OF EXAM: 07/16/2023 COMPARISON: None INDICATION: Dysrhythmia chest pain TECHNIQUE: Frontal and lateral views of the chest are obtained. FINDINGS: The heart size is normal. The pulmonary vasculature is normal. The lungs are clear. IMPRESSION: 1. No acute pulmonary process.
[2023-07-16 11:46] LABS: Basophils % (A) 0 %; Eosinophils # (A) 0.2 k/uL (0-0.7); Eosinophils % (A) 2 %; HCT 45.1 % (34.0-46.0); HGB 14.7 gm/dL (11.4-16.0); Lymphocytes # (A) 1.9 k/uL (1.0-4.8); Lymphocytes % (A) 21 %; MCH 28.3 pg (25.0-35.0); MCHC 32.6 g/dL (31.0-37.0); MCV 86.7 fL (80.0-100.0); Mean Platelet Volume 7.2; Monocytes # (A) 0.4 k/uL (0-1.0); Monocytes % (A) 4 %; Neutrophils # (A) 6.6 k/uL (1.3-7.7); Neutrophils % (A) 72 %; Platelet Count 327 k/uL (150-450); RBC 5.21 m/uL (3.80-5.40); RDW 12.9 % (11.5-15.5); WBC 9.2 k/uL (3.8-10.6)
[2023-07-16 12:06] LABS: Partial Thromboplastin Time 25.9 sec (22.0-30.0); Prothrombin Time 11.2 sec (10.0-12.5)
[2023-07-16] MEDS ORDERED: hydrALAZINE HCL 20 MG/ML 1 ML VIAL IVP STA (12:06)
[2023-07-16 12:08] LABS: ALT 25 U/L (4-34); AST 20 U/L (14-36); African American GFR (CKD) >90 (>60 ml/min/1.73 sqM); Alkaline Phosphatase 96 U/L (38-126); Anion Gap 12 mmol/L; Blood Urea Nitrogen 14 mg/dL (7-17); Carbon Dioxide 23 mmol/L (22-30); Chloride 107 mmol/L (98-107); Glucose 88 mg/dL (74-99); Magnesium 2.1 mg/dL (1.6-2.3); Non-African American GFR(CKD) 86 (>60 ml/min/1.73 sqM); Sodium 142 mmol/L (137-145); Total Bilirubin 0.7 mg/dL (0.2-1.3); Total Protein 8.5 g/dL (6.3-8.2)
[2023-07-16 14:27] VITALS: BP 160/99; PULSE 90
--- NOTE | 2023-07-16 14:53 | ED ---
Arrhythmia/Palpitations HPI - General Chief Complaint: Arrhythmia/Palpitations Stated Complaint: Hypertenstion Time Seen by Provider: 07/16/23 09:50 Source: patient, EMS Mode of arrival: EMS Limitations: no limitations - History of Present Illness Initial Comments: 33 -year-old female who presents emergency department reporting palpitations and hypertension. States that today her heart began racing around 8:30 AM while at rest. Palpitations lasted for short period of time and has been asymptomatic since arriving to the hospital. She states that she was recently diagnosed with high blood pressure and started on losartan on July 10. She continues to have uncontrolled high blood pressure. Reports to headaches and some blurred vision intermittently however no symptoms present at this time. She denies any chest pain or shortness of breath. Denies calf pain or swelling. No history of DVT or PE. No history of cardiac disease. She denies any concern for . No other alleviating, precipitating or modifying factors - Related Data Home Medications Medication Instructions Recorded Confirmed Losartan [Cozaar] 25 mg PO DAILY 07/16/23 07/16/23 Allergies Allergy/AdvReac Type Severity Reaction Status Date / Time No Known Allergies Allergy Verified 07/16/23 12:15 Review of Systems ROS Statement: Those systems with pertinent positive or pertinent negative responses have been documented in the HPI. ROS Other: All systems not noted in ROS Statement are negative. Past Medical History Past Medical History: GERD/Reflux, Hypertension Additional Past Medical History / Comment(s): PCOS, "borderline diabetic" History of Any Multi-Drug Resistant Organisms: None Reported Past Surgical History: Breast Surgery, Section Additional Past Surgical History / Comment(s): breast implant Past Anesthesia/Blood Transfusion Reactions: No Reported Reaction Past Psychological History: No Psychological Hx Reported Smoking Status: Current every day smoker Past Alcohol Use History: Rare Past Drug Use History: None Reported - Past Family History Mother Family Medical History: Hypertension, Thyroid Disorder Father Additional Family Medical History / Comment(s): type 2 diabetes General Exam Limitations: no limitations General appearance: alert, in no apparent distress Head exam: Present: atraumatic, normocephalic, normal inspection Eye exam: Present: normal appearance, PERRL, EOMI. Absent: scleral icterus, conjunctival injection, periorbital swelling ENT exam: Present: normal exam, mucous membranes moist Neck exam: Present: normal inspection. Absent: tenderness, meningismus, lymphadenopathy Respiratory exam: Present: normal lung sounds bilaterally. Absent: respiratory distress, wheezes, rales, rhonchi, stridor Cardiovascular Exam: Present: regular rate, normal rhythm, normal heart sounds. Absent: systolic murmur, diastolic murmur, rubs, gallop, clicks GI/Abdominal exam: Present: soft, normal bowel sounds. Absent: distended, tenderness, guarding, rebound, rigid Extremities exam: Present: normal inspection, full ROM, normal capillary refill. Absent: tenderness, pedal edema, joint swelling, calf tenderness Back exam: Present: normal inspection Neurological exam: Present: alert, oriented X3, CN II-XII intact Psychiatric exam: Present: normal affect, normal mood Skin exam: Present: warm, dry, intact, normal color. Absent: rash Course Vital Signs 07/16/23 07/16/23 07/16/23 09:41 09:48 10:00 Temperature 98.1 F Pulse Rate 91 90 85 Respiratory 18 Rate Blood Pressure 191/121 191/121 189/139 O2 Sat by Pulse 96 96 95 Oximetry 07/16/23 07/16/23 07/16/23 10:30 11:00 12:00 Temperature Pulse Rate 82 80 81 Respiratory Rate Blood Pressure 186/128 208/143 190/129 O2 Sat by Pulse 99 97 98 Oximetry 07/16/23 07/16/23 07/16/23 12:30 13:00 13:30 Temperature Pulse Rate 82 86 84 Respiratory Rate Blood Pressure 164/108 171/122 163/103 O2 Sat by Pulse 99 99 99 Oximetry 07/16/23 14:00 Temperature Pulse Rate 90 Respiratory Rate Blood Pressure 160/99 O2 Sat by Pulse 97 Oximetry Medical Decision Making - Medical Decision Making Was pt. sent in by a medical professional or institution (, PA, RAIL CAR DRIVER, urgent care, hospital, or fdc...) When possible be specific @ -No Did you speak to anyone other than the patient for history (EMS, parent, family, police, friend...)? What history was obtained from this source @ -EMS Did you review nursing and triage notes (agree or disagree)? Why? @ -I reviewed and agree with nursing and triage notes Were old charts reviewed (outside hosp., previous admission, EMS record, old EKG, old radiological studies, urgent care reports/EKG's, fdc records)? Report findings @ -No old charts were reviewed Differential Diagnosis (chest pain, altered mental status, abdominal pain women, abdominal pain men, vaginal bleeding, weakness, fever, dyspnea, syncope, headache, dizziness, GI bleed, back pain, seizure, CVA, palpatations, mental health, musculoskeletal)? @ -Differential Palpitations Ventricular arrhythmias, atrial arrhythmias, myocardial infarction, anemia, thyrotoxicosis, electrolyte imbalance, hypokalemia, pulmonary embolism, pulmonary disease, drugs, alcohol, anxiety, stress.... This is not meant to be an all-inclusive list. EKG interpreted by me (3pts min.). @ -Yes and demonstrates sinus rhythm with rate of 79. [place] interval 149. QRS 85. QTC of 405. No acute ST segment elevations or depressions X-rays interpreted by me (1pt min.). @ -Yes and demonstrates no acute intrathoracic process CT interpreted by me (1pt min.). @ -None done U/S interpreted by me (1pt. min.). @ -None done What testing was considered but not performed or refused? (CT, X-rays, U/S, labs)? Why? @ -None What meds were considered but not given or refused? Why? @ -None Did you discuss the management of the patient with other professionals (professionals i.e. , PA, RAIL CAR DRIVER, lab, RT, psych nurse, social studies department chair, hot bread baker, teacher, cavalry officer, supportive employment case manager)? Give summary @ -No Was smoking cessation discussed for >3mins.? @ -No Was critical care preformed (if so, how long)? @ -No Were there social determinants of health that impacted care today? How? (Homelessness, low income, unemployed, alcoholism, drug addiction, transportation, low edu. Level, literacy, decrease access to med. care, detention, rehab)? @ -No Was there de-escalation of care discussed even if they declined (Discuss DNR or withdrawal of care, Hospice)? DNR status @ -No What co-morbidities impacted this encounter? (DM, HTN, Smoking, COPD, CAD, Cancer, CVA, ARF, Chemo, Hep., AIDS, mental health diagnosis, sleep apnea, morbid obesity)? @ -hypertension Was patient admitted / discharged? Hospital course, mention meds given and route, prescriptions, significant lab abnormalities, going to OR and other pertinent info. @ -Upon arrival patient was placed into room 24. Thorough history and physical exam was performed. Patient placed on continuous pulse ox and cardiac monitoring. 12-lead EKG is obtained. Laboratory studies are conducted. Deb colby does have accelerated hypertension and therefore is given a dose of hydralazine. I did discuss diagnosis, treatment options. I will increase the patient's losartan does 50 mg daily. She is to continue taking a blood pressure log. Follow up with her primary care doctor. Likely needs Holter monitoring and echo. I do feel that the patient would benefit from other evaluation of her hypertension to include renal artery ultrasound. The patient has any new or worsening symptoms she should return to the emergency room. Patient agreeable plan and was discharged in stable condition Undiagnosed new problem with uncertain prognosis? @ -yes Drug Therapy requiring intensive monitoring for toxicity (Heparin, Nitro, Insulin, Cardizem)? @ -No Were any procedures done? @ -No Diagnosis/symptom? @ -Acute palpitations, accelerated hypertension, history of essential hypertension Acute, or Chronic, or Acute on Chronic? @ -Acute Uncomplicated (without systemic symptoms) or Complicated (systemic symptoms)? @ -Complicated Side effects of treatment? @ -No Exacerbation, Progression, or Severe Exacerbation? @ -No Poses a threat to life or bodily function? How? (Chest pain, USA, ID, pneumonia, PE, COPD, DKA, ARF, appy, cholecystitis, CVA, Diverticulitis, Homicidal, Suicidal, threat to staff... and all critical care pts) @ -No - Lab Data Result diagrams: 07/16/23 11:06 07/16/23 11:06 Lab Results 07/16/23 07/16/23 07/16/23 Range/Units 11:06 11:06 11:06 WBC 9.2 (3.8-10.6) k/uL RBC 5.21 (3.80-5.40) m/uL Hgb 14.7 (11.4-16.0) gm/dL Hct 45.1 (34.0-46.0) % MCV 86.7 (80.0-100.0) fL MCH 28.3 (25.0-35.0) pg MCHC 32.6 (31.0-37.0) g/dL RDW 12.9 (11.5-15.5) % Plt Count 327 (150-450) k/uL MPV 7.2 Neutrophils % 72 % Lymphocytes % 21 % Monocytes % 4 % Eosinophils % 2 % Basophils % 0 % Neutrophils # 6.6 (1.3-7.7) k/uL Lymphocytes # 1.9 (1.0-4.8) k/uL Monocytes # 0.4 (0-1.0) k/uL Eosinophils # 0.2 (0-0.7) k/uL Basophils # 0.0 (0-0.2) k/uL PT 11.2 (10.0-12.5) sec INR 1.0 (<1.2) APTT 25.9 (22.0-30.0) sec Sodium 142 (137-145) mmol/L Potassium 4.0 (3.5-5.1) mmol/L Chloride 107 (98-107) mmol/L Carbon Dioxide 23 (22-30) mmol/L Anion Gap 12 mmol/L BUN 14 (7-17) mg/dL Creatinine 0.89 (0.52-1.04) mg/dL Est GFR (CKD-EPI)AfAm >90 (>60 ml/min/1.73 sqM) Est GFR (CKD-EPI)NonAf 86 (>60 ml/min/1.73 sqM) Glucose 88 (74-99) mg/dL Calcium 10.0 (8.4-10.2) mg/dL Magnesium 2.1 (1.6-2.3) mg/dL Total Bilirubin 0.7 (0.2-1.3) mg/dL AST 20 (14-36) U/L ALT 25 (4-34) U/L Alkaline Phosphatase 96 (38-126) U/L Troponin I (0.000-0.034) ng/mL Total Protein 8.5 H (6.3-8.2) g/dL Albumin 5.0 (3.5-5.0) g/dL TSH 1.660 (0.465-4.680) mIU/L Urine HCG, Qual (Not Detectd) 07/16/23 07/16/23 Range/Units 11:06 11:06 WBC (3.8-10.6) k/uL RBC (3.80-5.40) m/uL Hgb (11.4-16.0) gm/dL Hct (34.0-46.0) % MCV (80.0-100.0) fL MCH (25.0-35.0) pg MCHC (31.0-37.0) g/dL RDW (11.5-15.5) % Plt Count (150-450) k/uL MPV Neutrophils % % Lymphocytes % % Monocytes % % Eosinophils % % Basophils % % Neutrophils # (1.3-7.7) k/uL Lymphocytes # (1.0-4.8) k/uL Monocytes # (0-1.0) k/uL Eosinophils # (0-0.7) k/uL Basophils # (0-0.2) k/uL PT (10.0-12.5) sec INR (<1.2) APTT (22.0-30.0) sec Sodium (137-145) mmol/L Potassium (3.5-5.1) mmol/L Chloride (98-107) mmol/L Carbon Dioxide (22-30) mmol/L Anion Gap mmol/L BUN (7-17) mg/dL Creatinine (0.52-1.04) mg/dL Est GFR (CKD-EPI)AfAm (>60 ml/min/1.73 sqM) Est GFR (CKD-EPI)NonAf (>60 ml/min/1.73 sqM) Glucose (74-99) mg/dL Calcium (8.4-10.2) mg/dL Magnesium (1.6-2.3) mg/dL Total Bilirubin (0.2-1.3) mg/dL AST (14-36) U/L ALT (4-34) U/L Alkaline Phosphatase (38-126) U/L Troponin I <0.012 (0.000-0.034) ng/mL Total Protein (6.3-8.2) g/dL Albumin (3.5-5.0) g/dL TSH (0.465-4.680) mIU/L Urine HCG, Qual Not Detected (Not Detectd) Disposition Clinical Impression: Hypertension Disposition: HOME SELF-CARE Condition: Stable Instructions (If sedation given, give patient instructions): Heart Palpitations (ED) Additional Instructions: Please take losartan 50 mg daily. Keep a log of your blood pressures at least twice a day. Follow-up with your primary care doctor. I recommended further testing to include renal artery ultrasound and possible adrenal catecholamine testing. Return should you have any new or worsening symptoms Is patient prescribed a controlled substance at d/c from ED?: No Referrals: Harleen Hdz DO [Primary Care Provider] - 1-2 days Time of Disposition: 14:53
== END 2023-07-16 15:15 | disposition home or self-care (01) ==
LOC: EC 09:35
DX: I10 Essential (primary) hypertension (principal); F17.200 Nicotine dependence, unspecified, uncomplicated
CPT/HCPCS: 36415; 93005; 80053; 84443; 83735; 84484; 85025; 85610; 85730; 81025; 71046; 99285; 96374; J0360